=== PATIENT | female | born 1975 | race Caucasian/White ===

== ENCOUNTER 2016-11-07 08:37 | Emergency (ER) | payer BC ==
[~2016-11-07] VITALS: Ht 175.3 cm; Wt 85.0 kg
[~2016-11-07 08:37] MED LIST: ASCO10004 PO; BUTTERBUR PO; CLON-364 PO; DIAZ5TAB4 PO; DSF PO; LORA10CA PO; Potassium PO; SERT50TA5 PO
[2016-11-07] MEDS ORDERED: SODIUM CHLORIDE 0.9% 1,000 ML IV ONE (08:58)
[2016-11-07] MEDS ORDERED: HYDROmorphone 1 MG/ML, 1ML IVPush PRN (09:00)
[2016-11-07] MEDS ORDERED: SODIUM CHLORIDE FLUSH 10ML SYR IVF ONE (09:00)
[2016-11-07] MEDS ORDERED: SODIUM CHLORIDE 0.9% 1,000ML IVBOLUS ONE (09:00)
[2016-11-07] MEDS ORDERED: ONDANSETRON 2MG/ML, 2ML IVPush ONE ×2 (09:00→10:30)
[2016-11-07] MEDS ORDERED: CLON-364 PO (09:01)
[2016-11-07] MEDS ORDERED: ONDANSETRON 2MG/ML, 2ML ONE ×2 (09:04→10:24)
[2016-11-07] MEDS ORDERED: HYDROmorphone 1 MG/ML, 1ML ONE (09:04)
[2016-11-07 09:30] LABS: ASPARTATE AMINO TRANSFERASE 15 U/L (15-37); BLOOD UREA NITROGEN 10 mg/dL (7-18)
[2016-11-07] MEDS ORDERED: OMNIPAQUE 350 MG/ML, 100ML BOTTLE ONE (10:42)
[2016-11-07] MEDS ORDERED: METOCLOPRAMIDE 5 MG/ML, 2ML IVPush ONE (12:00)
[2016-11-07] MEDS ORDERED: METOCLOPRAMIDE 5 MG/ML, 2ML ONE (12:00)
[2016-11-07 12:02] VITALS: BP 111/62
== END 2016-11-07 12:26 | disposition home or self-care (01) ==
LOC: ED 09:26
DX: K52.9 Noninfective gastroenteritis and colitis, unspecified (principal); R10.84 Generalized abdominal pain; Z88.5 Allergy status to narcotic agent; Z88.8 Allergy status to other drugs, medicaments and biological substances
CPT/HCPCS: 36415; 74177; 76700; 80053; 81003; 83690; 85025; 96361; 96374; 96375; 99285; J1170; J2405; J2765; J7030; Q9967